=== PATIENT | female | born 1990 | race Caucasian/White ===

== ENCOUNTER 2024-12-15 16:12 | Outpatient (CLI) | payer BC, SELFPAY | END 2024-12-15 16:13 | disposition home or self-care (01) | PROVIDERS: PCP Family Medicine; Visit Provider Family Medicine | DX: K58.2 Mixed irritable bowel syndrome (principal); K76.0 Fatty (change of) liver, not elsewhere classified; N92.0 Excessive and frequent menstruation with regular cycle; M72.2 Plantar fascial fibromatosis; R16.1 Splenomegaly, not elsewhere classified; Z91.018 Allergy to other foods | CPT/HCPCS: 80053; 80061; 82728; 83540; 83550; 84443; 86003 ==